=== PATIENT | female | born 1950 | race African-American/Black ===

== ENCOUNTER 2022-09-04 00:43 | Emergency (ER) | payer MEDICARE, MEDICAID ==
[~2022-09-04] VITALS: Ht 154.9 cm; Wt 69.1 kg
[2022-09-04] MEDS ORDERED: HYDROCODONE/ACETAMINOPHEN 5/325MG TABLET PO STA (03:09)
[2022-09-04] MEDS ORDERED: KETOROLAC 30MG/ML VIAL IM STA (04:01)
[2022-09-04] MEDS ORDERED: IBUP-2029 PO (04:23)
[2022-09-04] MEDS ORDERED: HYDR-4009 PO (04:23)
[2022-09-04 04:50] VITALS: BP 145/64
== END 2022-09-04 04:55 | disposition home or self-care (01) ==
LOC: ER 01:26
DX: S42.292A Other displaced fracture of upper end of left humerus, initial encounter for closed fracture (principal); S00.83XA Contusion of other part of head, initial encounter; M25.522 Pain in left elbow; W01.198A Fall on same level from slipping, tripping and stumbling with subsequent striking against other object, initial encounter; Y93.01 Activity, walking, marching and hiking; Y92.480 Sidewalk as the place of occurrence of the external cause
CPT/HCPCS: 73030; 73060; 73080; 96372; 99284; J1885